=== PATIENT | male | born 1965 | race Caucasian/White ===

== ENCOUNTER → 2018-01-22 | Day surgery (SDC) | payer BC ==
[2018-01-21 09:24] VITALS: BMI 25.8
[~2018-01-22] MED LIST: LACTATED RINGERS 1,000 ML IV SCH; LIDOCAINE 1% 20 ML VIAL (10MG/ML) FOR IV START INTRADERMA PRN; MIDAZOLAM 2 MG/2 ML VIAL IV PRN; PROPOFOL 10 MG/ML 20 ML VIAL IV ONE
[2018-01-22 09:02] VITALS: RESP 16; TEMP 97.6
--- NOTE | 2018-01-22 09:22 | P.GSHP ---
History of Present Illness H&P Date: 01/22/18 Chief Complaint: Colon cancer screening Patient here today for colonoscopy. Last colonoscopy 6 years ago. No bowel complaints. Family history of colon cancer in his father. Past Medical History Past Medical History: Hearing Disorder / Deafness, Hyperlipidemia, Hypertension , Renal Disease Additional Past Medical History / Comment(s): KIDNEY TRANSPLANT 1991, History of Any Multi-Drug Resistant Organisms: None Reported Past Surgical History: Back Surgery Additional Past Surgical History / Comment(s): KIDNEY TRANSPLANT, LEFT ELBOW SURGERY Past Anesthesia/Blood Transfusion Reactions: No Reported Reaction Smoking Status: Never smoker - Past Family History Father Family Medical History: Cancer Additional Family Medical History / Comment(s): COLON CANCER Medications and Allergies Home Medications Medication Instructions Recorded Confirmed Type Atorvastatin Calcium [Lipitor] 10 mg PO HS 01/21/18 01/22/18 History Cholecalciferol [Vitamin D3] 5,000 unit PO DAILY 01/21/18 01/22/18 History Cyclosporine, Modified [Gengraf] 100 mg PO BID 01/21/18 01/22/18 History Losartan Potassium [Cozaar] 25 mg PO BID 01/21/18 01/22/18 History azaTHIOprine [Imuran] 125 mg PO DAILY 01/21/18 01/22/18 History Allergies Allergy/AdvReac Type Severity Reaction Status Date / Time salmon oil Allergy Swelling Verified 01/22/18 08:41 shellfish derived [Shellfish] Allergy Swelling Verified 01/22/18 08:41 OF LIPS Surgical - Exam Vital Signs Temp Pulse Resp BP Pulse Ox 97.6 F 101 H 16 140/86 98 01/22/18 08:55 01/22/18 08:55 01/22/18 08:55 01/22/18 08:55 01/22/18 08:55 Physical exam: General: Well-developed, well-nourished HEENT: Normocephalic, sclerae nonicteric Abdomen: Nontender, nondistended Extremities: No edema Neuro: Alert and oriented Assessment and Plan (1) Colon cancer screening Narrative/Plan: Will proceed with colonoscopy at this time Current Visit: Yes Status: Acute Code(s): Z12.11 - ENCOUNTER FOR SCREENING FOR MALIGNANT NEOPLASM OF COLON SNOMED Code(s): 608896029
--- NOTE | 2018-01-22 09:35 | P.PCN ---
Date of Procedure: 01/22/18 Procedure(s) Performed: PREOPERATIVE DIAGNOSIS: Colon cancer screening POSTOPERATIVE DIAGNOSIS: Normal exam PROCEDURE: Colonoscopy ANESTHESIA: MAC SURGEON: Stas Raphael M.D. SPECIMENS: None ENDOSCOPIC PROCEDURE: The patient was placed on the endoscopy table in the left decubitus position. The Olympus colonoscope was inserted into the anus and passed under direct visualization to the base of the cecum. The appendiceal orifice was visualized. From that point the scope was slowly withdrawn inspecting all surfaces carefully. There were no neoplastic inflammatory or polypoid lesions throughout the cecum, ascending, transverse, descending, sigmoid and rectum. There was no diverticulosis noted. Digital rectal examination was normal. The patient was taken to the recovery room in stable condition per anesthesia guidelines. RECOMMENDATIONS: Increase fiber. Follow-up colonoscopy 5 years given the patient's family history of colon cancer
[2018-01-22 09:39] VITALS: BP 119/80; PULSE 74
== END | disposition home or self-care (01) ==
LOC: ORWHC2ENDO 08:22
PROVIDERS: ATTEND Surgery
DX: Z12.11 Encounter for screening for malignant neoplasm of colon (principal); H91.90 Unspecified hearing loss, unspecified ear; E78.5 Hyperlipidemia, unspecified; I10 Essential (primary) hypertension; Z94.0 Kidney transplant status; Z80.0 Family history of malignant neoplasm of digestive organs; Z79.899 Other long term (current) drug therapy; Z91.013 Allergy to seafood; Z91.048 Other nonmedicinal substance allergy status
CPT/HCPCS: 45378; J2704

== ENCOUNTER → 2018-12-08 | Outpatient (CLI) | payer BC ==
--- NOTE | 2018-12-09 16:19 | US ---
EXAMINATION TYPE: US renal transplant w Doppler DATE OF EXAM: 12/08/2018 COMPARISON: NONE CLINICAL HISTORY: R31.1 HEMATURIA. Microscopic hematuria per patient; renal transplant in the right p jose 1991 Technique: Grayscale on [place] kidneys and Doppler duplex and Grayscale imaging of the transplanted k idney. FINDINGS: EXAM MEASUREMENTS: [place] Right Kidney: area assessed but [place] kidney is not well seen [place] Left Kidney: area assessed but [place] kidney is not well seen Transplant Kidney: 12.0 x 5.5 x 4.6cm Location of transplanted kidney: right pelvis Transplant Kidney: color flow is well seen to renal periphery; PW arterial Doppler flow at hilum = 1 48.5 PSV and EDV = 56.2cm/s in Renal Artery. PW Arterial flow is suboptimally assessed in the iliac artery or the anastomosis. Resistive Indices in assessed [place] Arteries vary from 0.56 - 0.75. Venous Flow is documented in Renal Vein for transplanted kidney. Bladder: Possible small ureteral jet is seen in right bladder area on images #8, and #10. No gross abnormality of the partially urine distended bladder. Post Void Residual Volume: 32.6ml, increased but within acceptable limits IMPRESSION: 1. Right lower quadrant transplant kidney shows no hydronephrosis. The renal vein is patent. 2. The lack of low resistive indices within the kidney or blunted acceleration time at the level of t he renal hilum argues against an anastomotic stenosis. Direct assessment of the anastomosis is limite d due to inability to adequately visualize this area on the present exam. 3. No abnormal diastolic flow reversal.
== END | disposition home or self-care (01) ==
LOC: RADUSWWP 16:11
PROVIDERS: ATTEND Urology
DX: R31.1 Benign essential microscopic hematuria (principal)
CPT/HCPCS: 76776

== ENCOUNTER → 2023-12-15 | Day surgery (SDC) | payer BC ==
[2023-12-11 09:29] VITALS: BMI 25.8
[~2023-12-15] MED LIST changes: -LACTATED RINGERS 1,000 ML IV SCH; +LIDOCAINE 1% (10MG/ML) FOR IV START INTRADERMA PRN; -LIDOCAINE 1% 20 ML VIAL (10MG/ML) FOR IV START INTRADERMA PRN; +LIDOCAINE 1% INJ 10MG/ML (20 ML MDV) ONE; -MIDAZOLAM 2 MG/2 ML VIAL IV PRN; +ONDANSETRON 4 MG/2 ML VIAL IVP PRN
[2023-12-15] MEDS: LACTATED RINGERS 1,000 ML IV SCH (09:39)
[2023-12-15] MEDS: IV FLUID CONTINUATION 1,000 ML IV ONE (09:39)
[2023-12-15 09:48] VITALS: TEMP 97
--- NOTE | 2023-12-15 10:07 | P.GSHP ---
History of Present Illness H&P Date: 12/15/23 Chief Complaint: Colon cancer screening 58-year-old male here for colonoscopy. Last colonoscopy 6 years ago. Family history of colon cancer in his father. No bowel complaints. Past Medical History Past Medical History: Hearing Disorder / Deafness, Hyperlipidemia, Hypertension, Osteoarthritis (OA), Renal Disease Additional Past Medical History / Comment(s): KIDNEY TRANSPLANT 1991, History of Any Multi-Drug Resistant Organisms: None Reported Past Surgical History: Back Surgery, Joint Replacement Additional Past Surgical History / Comment(s): KIDNEY TRANSPLANT, LEFT ELBOW SURGERY , rt lt hip replacement. Past Anesthesia/Blood Transfusion Reactions: No Reported Reaction Additional Past Anesthesia/Blood Transfusion Reaction / Comment(s): Had blood transfusion when he was a baby r/t jaundice. Smoking Status: Never smoker - Past Family History Father Family Medical History: Cancer Additional Family Medical History / Comment(s): COLON CANCER Medications and Allergies Home Medications Medication Instructions Recorded Confirmed Type Atorvastatin Calcium [Lipitor] 10 mg PO HS 01/21/18 12/15/23 History Cholecalciferol [Vitamin D3] 5,000 unit PO QAM 01/21/18 12/11/23 History Cyclosporine, Modified [Gengraf] 100 mg PO BID 01/21/18 12/15/23 History Losartan Potassium [Cozaar] 25 mg PO BID 01/21/18 12/15/23 History azaTHIOprine [Imuran] 125 mg PO QAM 01/21/18 12/15/23 History Allergies Allergy/AdvReac Type Severity Reaction Status Date / Time No Known Allergies Allergy Verified 12/15/23 09:45 Surgical - Exam Vital Signs Temp Pulse Resp BP Pulse Ox 97 F L 73 18 165/96 95 12/15/23 09:47 12/15/23 09:47 12/15/23 09:47 12/15/23 09:47 12/15/23 09:47 Physical exam: General: Well-developed, well-nourished HEENT: Normocephalic, sclerae nonicteric Abdomen: Nontender, nondistended Extremities: No edema Neuro: Alert and oriented Assessment and Plan (1) Colon cancer screening Narrative/Plan: Will proceed with colonoscopy at this time. Current Visit: No Status: Acute Code(s): Z12.11 - ENCOUNTER FOR SCREENING FOR MALIGNANT NEOPLASM OF COLON SNOMED Code(s): 605292509
--- NOTE | 2023-12-15 10:20 | P.PCN ---
Date of Procedure: 12/15/23 Procedure(s) Performed: PREOPERATIVE DIAGNOSIS: Colon cancer screening POSTOPERATIVE DIAGNOSIS: Mild diverticulosis PROCEDURE: Colonoscopy ANESTHESIA: MAC SURGEON: Stas Raphael M.D. SPECIMENS: None ENDOSCOPIC PROCEDURE: The patient was placed on the endoscopy table in the left decubitus position. The Olympus colonoscope was inserted into the anus and passed under direct visualization to the base of the cecum. The appendiceal orifice was visualized. From that point the scope was slowly withdrawn inspecting all surfaces carefully. There were no neoplastic inflammatory or polypoid lesions throughout the cecum, ascending, transverse, descending, sigmoid and rectum. There was mild left-sided diverticulosis noted. Digital rectal examination was normal. The patient was taken to the recovery room in stable condition per anesthesia guidelines. RECOMMENDATIONS: Resume diet. Repeat colonoscopy 5 years.
[2023-12-15 10:27] VITALS: RESP 14
[2023-12-15 10:49] VITALS: BP 151/93; PULSE 68
== END ==
LOC: ORWHC2ENDO 09:18
PROVIDERS: ATTEND Surgery
DX: Z12.11 Encounter for screening for malignant neoplasm of colon (principal); K57.30 Diverticulosis of large intestine without perforation or abscess without bleeding; E78.5 Hyperlipidemia, unspecified; I10 Essential (primary) hypertension; M19.90 Unspecified osteoarthritis, unspecified site; H91.90 Unspecified hearing loss, unspecified ear; Z94.0 Kidney transplant status; Z80.0 Family history of malignant neoplasm of digestive organs; Z96.642 Presence of left artificial hip joint; Z79.624 Long term (current) use of inhibitors of nucleotide synthesis; Z79.02 Long term (current) use of antithrombotics/antiplatelets; Z79.899 Other long term (current) drug therapy
CPT/HCPCS: 45378; J2003; J2704